=== PATIENT | male | born 1985 | race Two or more races ===

== ENCOUNTER 2024-01-10 14:21 | Emergency (ER) | payer SELFPAY ==
[~2024-01-10] VITALS: Ht 188 cm; Wt 143.2 kg
[2024-01-10 22:30] VITALS: PULSE 81; RESP 18; O2SAT 98
[2024-01-10 22:55] VITALS: BP 133/86; PULSE 63; RESP 18; TEMP 98; O2SAT 100
== END 2024-01-10 23:03 | disposition home or self-care (01) ==
LOC: ER 14:21
DX: S20.211A Contusion of right front wall of thorax, initial encounter (principal); V87.8XXA Person injured in other specified noncollision transport accidents involving motor vehicle (traffic), initial encounter; Y93.55 Activity, bike riding; Y92.89 Other specified places as the place of occurrence of the external cause; Y99.8 Other external cause status
CPT/HCPCS: 71101; 72128; 72131